=== PATIENT | male | born 1950 | race Caucasian/White ===

== ENCOUNTER 2016-07-12 21:25 | Inpatient (IN) | payer BC, OTHER ==
[~2016-07-12] VITALS: Ht 171.4 cm; Wt 73.6 kg
[2016-07-12] MEDS ORDERED: SODIUM CHLORIDE 0.9% 1000ML 1,000 ML IV STA (21:44)
--- NOTE | 2016-07-12 22:11 | DIAGNOSTIC IMAGING REPORT ---
CHEST ONE VIEW PORTABLE CLINICAL HISTORY: Altered mental status. Weakness. COMPARISON STUDY: No previous studies for comparison. FINDINGS: There is an old deformity of the mid shaft of the right clavicle. Lung volumes are normal. Lungs are clear. Pulmonary vascularity is normal. Cardiomediastinal silhouette is normal. There is no pneumothorax or pleural effusion. IMPRESSION: No acute cardiopulmonary findings. Electronically signed by: Gwyn Loera M.D. 07/12/2016 10:10 PM Dictated Date/Time: 07/12/2016 10:09 PM
[2016-07-12] MEDS ORDERED: AMOX875T PO (22:44)
[2016-07-12] MEDS ORDERED: TAMS0.4C38 PO (22:44)
[2016-07-12 22:53] LABS: COMPLETE YES; EOS % 0.9 %; HEMATOCRIT 50.6 % (42-52); IG% 0.3 %; LYMPH % 4.6 %; LYMPH ABS # 0.42 K/uL (1.2-3.4); MEAN CELL VOLUME 86.8 fL (80-100); MEAN CORPUSCULAR HEMOGLOBIN 30.2 pg (25-34); MEAN CORPUSCULAR HGB CONC 34.8 g/dl (32-36); MEAN PLATELET VOLUME 11.5 fL (7.4-10.4); MONO % 5.3 %; NEUT % 88.9 %; PLATELET COUNT 219 K/uL (130-400); RED BLOOD COUNT 5.83 M/uL (4.7-6.1); WHITE BLOOD COUNT 9.14 K/uL (4.8-10.8)
[2016-07-12 23:12] LABS: ALT/SGPT 28 U/L (12-78); AST/SGOT 22 U/L (15-37); BLOOD UREA NITROGEN 26 mg/dl (7-18); BUN/CREATININE RATIO 18.3 (10-20); CALCIUM 9.2 mg/dl (8.5-10.1); CARBON DIOXIDE 25 mmol/L (21-32); CHLORIDE 107 mmol/L (98-107); GLUCOSE 92 mg/dl (70-99); MAGNESIUM 2.2 mg/dl (1.8-2.4); POTASSIUM 3.6 mmol/L (3.5-5.1); SODIUM 144 mmol/L (136-145)
[2016-07-12 23:23] LABS: ALKALINE PHOSPHATASE 84 U/L (45-117); CKMB/CK RATIO 1.6 (0-3.0)
[2016-07-12 23:36] LABS: URINE APPEARANCE CLOUDY (CLEAR); URINE BILIRUBIN NEG (NEG); URINE COLOR DK YELLOW; URINE EPITHELIAL CELL AUTO 20-30 /lpf (0-5); URINE NITRITE NEG (NEG); URINE SPECIFIC GRAVITY 1.021 (1.000-1.030); UROBILINOGEN NEG (NEG)
[2016-07-12 23:39] LABS: MANUAL MICROSCOPIC REQUIRED? NO; REVIEW REQ? YES
[2016-07-13] MEDS ORDERED: SODIUM CHLORIDE 0.9% 1000ML 1,000 ML IV STA (00:09)
[2016-07-13] MEDS ORDERED: OPTIRAY 320 IV PRN (00:15)
[2016-07-13] MEDS ORDERED: ACETAMINOPHEN 325 MG TAB PO PRN (01:15)
[2016-07-13] MEDS ORDERED: ONDANSETRON INJ 2 MG/ML 2 ML VIAL IV PRN (01:15)
[2016-07-13] MEDS ORDERED: ACETAMINOPHEN IV 100 ML IV PRN (01:15)
[2016-07-13] MEDS: NSS + 20MEQ KCL 1000ML 1,000 ML IV SCH ×3 (01:30→15:20)
--- NOTE | 2016-07-13 01:41 | EMERGENCY ROOM VISIT NOTE ---
History Report prepared by Sofiya: Delaney Mckeon Under the Supervision of: Dr. Fredy Brooke M.D. First contact with patient: 21:44 Chief Complaint: SYNCOPE Stated Complaint: SYNCOPE Nursing Triage Summary: pt reports that he was eating dinner and felt dizzy. pt then had a syncopal episode. pt denies past medical history. reports that he is currently being treated for ear infection with augmentin. took first dose at 1600. pt is diaphoretic and shaky. History of Present Illness The patient is a 65 year old male who presents to the Emergency Room with complaints of a syncopal episode that occurred this evening. The patient reports that he was recently diagnosed with a left ear infection and had his first dose of Augmentin about 8 hours ago. This evening, he went to dinner feeling normal other than some very mild left ear pain. He ate dinner and had two glasses of wine. While sitting at the table, he became diaphoretic. He got up to go to the bathroom and when he came back to the table, passed out. Currently, he feels weak with some shortness of breath, although he feels better than he did right after the episode. He reports 3 episodes of diarrhea since he arrived to the ED. He also complains of chills. Per patient's , the patient had a 4 hour car ride 3 days ago. Pt denies headache, fevers, visual changes, neck pain, chest pain, nausea, vomiting, abdominal pain, back pain, melena, hematochezia, urinary symptoms, numbness, lymphadenopathy, rash, or other complaints. Source of History: patient, spouse/significant other Onset: this evening Position: other (global) Quality: other (syncope) Timing: other (episode) Associated Symptoms: + SOB, + chills, + diaphoresis, + diarrhea, + weakness Review of Systems See HPI for pertinent positives and negatives. A total of ten systems were reviewed and were otherwise negative. Past Medical & Surgical Medical Problems: (1) Otitis media Family History No pertinent family history stated. Social History Smoking Status: Never Smoker Alcohol Use: occasionally Marital Status: Housing Status: lives with significant other Current/Historical Medications Scheduled Amoxicillin & Pot Clavulanate (Augmentin 875-125 mg), 1 TAB PO BID Tamsulosin Hcl (Flomax), 0.4 MG PO DAILY Allergies Coded Allergies: No Known Allergies (Unverified , 07/12/16) Physical Exam Vital Signs Date Time Temp Pulse Resp B/P Pulse Ox O2 Delivery O2 Flow Rate FiO2 07/12/16 23:44 68 112/62 78 107/65 103/59 07/12/16 22:40 95 Room Air 07/12/16 22:03 63 07/12/16 21:32 36.4 58 24 111/66 97 Room Air Physical Exam GENERAL: Awake, alert, uncomfortable-appearing, in no distress HENT: Normocephalic, atraumatic. Oropharynx unremarkable. EYES: Normal conjunctiva. Sclera non-icteric. NECK: Supple. No nuchal rigidity. FROM. No JVD. RESPIRATORY: Clear to auscultation. CARDIAC: Regular rate, normal rhythm. Extremities warm and well perfused. Pulses equal. Hypotension noted on blood pressure measurement. ABDOMEN: Soft, non-distended. No tenderness to palpation. No rebound or guarding. No masses. RECTAL: Deferred. MUSCULOSKELETAL: Chest examination reveals no tenderness. The back is symmetrical on inspection without obvious abnormality. There is no CVA tenderness to palpation. No joint edema. LOWER EXTREMITIES: Calves are equal size bilaterally and non-tender. No edema. No discoloration. NEURO: Normal sensorium. No sensory or motor deficits noted. SKIN: No rash or jaundice noted. Medical Decision & Procedures ER Provider Diagnostic Interpretation: Radiology results as stated below per my review and radiologist interpretation CHEST ONE VIEW PORTABLE CLINICAL HISTORY: Altered mental status. Weakness. COMPARISON STUDY: No previous studies for comparison. FINDINGS: There is an old deformity of the mid shaft of the right clavicle. Lung volumes are normal. Lungs are clear. Pulmonary vascularity is normal. Cardiomediastinal silhouette is normal. There is no pneumothorax or pleural effusion. IMPRESSION: No acute cardiopulmonary findings. Electronically signed by: Gwyn Loera M.D. 07/12/2016 10:10 PM Dictated Date/Time: 07/12/2016 10:09 PM Laboratory Results 07/12/16 22:30 Red Blood Count 5.83, Mean Corpuscular Volume 86.8, Mean Corpuscular Hemoglobin 30.2, Mean Corpuscular Hemoglobin Concent 34.8, Mean Platelet Volume 11.5, Neutrophils (%) (Auto) 88.9, Lymphocytes (%) (Auto) 4.6, Monocytes (%) (Auto) 5.3, Eosinophils (%) (Auto) 0.9, Basophils (%) (Auto) 0.0, Neutrophils # (Auto) 8.13, Lymphocytes # (Auto) 0.42, Monocytes # (Auto) 0.48, Eosinophils # (Auto) 0.08, Basophils # (Auto) 0.00 07/12/16 22:30 Test 07/12/16 22:30 07/12/16 23:16 07/12/16 23:24 07/13/16 01:28 White Blood Count 9.14 K/uL (4.8-10.8) Red Blood Count 5.83 M/uL (4.7-6.1) Hemoglobin 17.6 g/dL (14.0-18.0) Hematocrit 50.6 % (42-52) Mean Corpuscular Volume 86.8 fL (80-100) Mean Corpuscular Hemoglobin 30.2 pg (25-34) Mean Corpuscular Hemoglobin Concent 34.8 g/dl (32-36) Platelet Count 219 K/uL (130-400) Mean Platelet Volume 11.5 fL (7.4-10.4) Neutrophils (%) (Auto) 88.9 % Lymphocytes (%) (Auto) 4.6 % Monocytes (%) (Auto) 5.3 % Eosinophils (%) (Auto) 0.9 % Basophils (%) (Auto) 0.0 % Neutrophils # (Auto) 8.13 K/uL (1.4-6.5) Lymphocytes # (Auto) 0.42 K/uL (1.2-3.4) Monocytes # (Auto) 0.48 K/uL (0.11-0.59) Eosinophils # (Auto) 0.08 K/uL (0-0.5) Basophils # (Auto) 0.00 K/uL (0-0.2) RDW Standard Deviation 42.0 fL (36.4-46.3) RDW Coefficient of Variation 13.3 % (11.5-14.5) Immature Granulocyte % (Auto) 0.3 % Immature Granulocyte # (Auto) 0.03 K/uL (0.00-0.02) Anion Gap 12.0 mmol/L (3-11) Est Creatinine Clear Calc Drug Dose 48.7 ml/min Estimated GFR () 59.8 Estimated GFR (Non- 51.6 BUN/Creatinine Ratio 18.3 (10-20) Bedside Glucose 88 mg/dl (70-99) Calcium Level 9.2 mg/dl (8.5-10.1) Magnesium Level 2.2 mg/dl (1.8-2.4) Total Bilirubin 0.5 mg/dl (0.2-1) Direct Bilirubin 0.1 mg/dl (0-0.2) Aspartate Amino Transf (AST/SGOT) 22 U/L (15-37) Alanine Aminotransferase (ALT/SGPT) 28 U/L (12-78) Alkaline Phosphatase 84 U/L (45-117) Total Creatine Kinase 103 U/L (39-308) Creatine Kinase MB 1.6 ng/ml (0.5-3.6) Creatine Kinase MB Ratio 1.6 (0-3.0) Troponin I < 0.015 ng/ml (0-0.045) Total Protein 7.7 gm/dl (6.4-8.2) Albumin 4.1 gm/dl (3.4-5.0) Thyroid Stimulating Hormone (TSH) 10.400 uIu/ml (0.300-4.500) Urine Color DK YELLOW Urine Appearance CLOUDY (CLEAR) Urine pH 5.0 (4.5-7.5) Urine Specific [place] 1.021 (1.000-1.030) Urine Protein NEG (NEG) Urine Glucose (UA) NEG (NEG) Urine Ketones TRACE (NEG) Urine Occult Blood NEG (NEG) Urine Nitrite NEG (NEG) Urine Bilirubin NEG (NEG) Urine Urobilinogen NEG (NEG) Urine Leukocyte Esterase NEG (NEG) Urine WBC (Auto) 1-5 /hpf (0-5) Urine RBC (Auto) 0-4 /hpf (0-4) Urine Hyaline Casts (Auto) >30 /lpf (0-5) Urine Epithelial Cells (Auto) 20-30 /lpf (0-5) Urine Bacteria (Auto) NEG (NEG) Urine Crystals CALCIUM OXALATE (NONE Urine Pathogenic Casts /lpf (0) Bedside Lactic Acid Venous 3.14 mmol/L (0.90-1.70) Laboratory results reviewed by me Medications Administered Medications (Trade) Dose Ordered Sig/Colby Route Start Time Stop Time Status Last Admin Dose Admin Sodium Chloride (Nss 1000ml) 1,000 ml @ 999 mls/hr Q1H1M STAT IV 07/12/16 21:44 07/12/16 22:44 DC 07/12/16 21:44 999 MLS/HR ECG Indication: syncope Rate (beats per minute): 57 Rhythm: sinus bradycardia Findings: no acute ischemic change, no ectopy ED Course 2144: Ordered NSS 1000 ml @ 999 mls/hr IV. 2227: The patient was evaluated in room C4. A complete history and physical exam was performed. 2313: I reassessed the patient. He was feeling slightly better. 0009: Ordered NSS 1000 ml @ 200 mls/hr IV. 0030: Upon reexamination, the patient was feeling better. I discussed the test results and treatment plan with him. The patient will be evaluated for further management. 0035: I discussed the case with Dr. Jo - [facility]. The patient will be evaluated for further management. Medical Decision Triage Nursing notes reviewed. The patient's presentation and history were concerning for syncope. Etiologies such as vasovagal event, infection, hypoglycemia, electrolyte abnormalities, cardiac sources, intracerebral event, toxicologic, neurologic, as well as others were entertained. The patient was evaluated. He was ill-appearing. His CBC, chem panel, LFTs, cardiac markers were unremarkable. The patient's urinalysis was negative. Stool studies were ordered. The patient had an elevated lactate level. He was mildly hypotensive. He was afebrile. He was hydrated and was feeling somewhat better but still not well. Chest x-ray showed no acute findings. CT imaging of the chest did not reveal any evidence of pneumonia, pleural effusion, pneumothorax, or pulmonary embolism. The patient's exact etiology of his symptoms is not obvious. He is developing diarrhea. This may be GI related. As the patient is still somewhat symptomatic and has unremarkable vital signs at this point as well as his above diagnostic testing further evaluation and management in the hospital is felt to be most appropriate. Consultation was made with internal medicine. The patient was evaluated in the Emergency Room for further treatment. The chart was completed utilizing [employer] voice recognition software. Grammatical errors, random word insertions, pronoun errors, and incomplete sentences are an occasional consequence of this system due to software limitations, ambient noise, and hardware issues. Any formal questions or concerns about the content, text, or information contained within the body of this dictation should be directly addressed to the physician for clarification. Consults Time Called: 29 Consulting Physician: Dr. Sandro Kapoor [facility] Hospitalist Returned Call: [phone] I discussed the case with him. The patient will be evaluated for further management. Impression Primary Impression: Syncope Scribe Attestation The scribe's documentation has been prepared under my direction and personally reviewed by me in its entirety. I confirm that the note above accurately reflects all work, treatment, procedures, and medical decision making performed by me. Departure Information Dispostion Being Evaluated By Hospitalist Referrals Tony Diaz M.D. (PCP) Patient Instructions My [facility]
[2016-07-13] MEDS ORDERED: MoRPHine SULFATE 4 MG/ML 1 ML CARP\\VIAL IV PRN (01:45)
[2016-07-13] MEDS ORDERED: MoRPHine SULFATE 2 MG/ML CARP IV PRN (01:45)
[2016-07-13] MEDS ORDERED: KETOROLAC TROMETHAMINE 15 MG/ML VIAL IV. PRN (01:45)
[2016-07-13] MEDS ORDERED: GADAVIST IV PRN (02:45)
[2016-07-13 05:12] VITALS: BP 108/71; PULSE 88; TEMP 36.8; O2SAT 98; Ht 171.4 cm; Wt 73.6 kg
--- NOTE | 2016-07-13 07:18 | DIAGNOSTIC IMAGING REPORT ---
MRI OF THE BRAIN WITHOUT AND WITH IV CONTRAST CLINICAL HISTORY: possible meningitis mental status change COMPARISON STUDY: No previous studies for comparison. TECHNIQUE: Utilizing a 1.5 Farhana magnet and dedicated coil, multiplanar, multiecho imaging of the brain was performed pre and postcontrast administration. IV administration of 8.5 mL of Gadavist contrast was uneventful. FINDINGS: Unremarkable signal characteristics throughout. No evidence for an acute ischemic process. Ventricular system is midline. No significant postcontrast enhancement. IMPRESSION: Normal study. Electronically signed by: Froilan Garduno M.D. 07/13/2016 7:16 AM Dictated Date/Time: 07/13/2016 7:12 AM
--- NOTE | 2016-07-13 07:30 | DIAGNOSTIC IMAGING REPORT ---
CHEST CTA for PULMONARY ARTERIES CT DOSE: 277.67 mGy.cm HISTORY: Short of breath. Syncope. TECHNIQUE: Multiaxial CT images of the chest were performed following the intravenous administration of contrast to evaluate the pulmonary arteries. Maximal intensity projection images were also obtained. COMPARISON STUDY: Chest 08/10/2016. FINDINGS: Cholelithiasis. A 12 mm left hepatic lobe hypodense lesion. This favors a cyst. The spleen is unremarkable. Bilateral adrenal gland thickening. No mediastinal or hilar lymphadenopathy. Mild thickening of the distal esophagus which is also fluid-filled. No pleural or pericardial effusions. Old, healed right clavicle fracture. No pneumothorax. A 3 mm nodule within the right upper lobe on image 199. An 8 mm nodule within the right lower lobe on image 139. Nodular density within the central aspect of the right lower lobe adjacent to a bronchus on image 127 measures 7 mm. This favors a bronchial lymph node. No evidence for an aortic dissection. Mild motion artifact. No evidence for pulmonary embolus. IMPRESSION: 1. No evidence for pulmonary embolus. 2. An 8 mm indeterminate pulmonary nodule within the right lower lobe. Please refer to the chart below for recommended follow-up. 3. A 7 mm right lower lobe central nodule which favors a bronchial lymph node. However, this also bears watching on future examinations. 4. Mildly thickened distal esophagus which is also fluid-filled. This could represent a nonspecific esophagitis. Please refer to below summary of Fleischner criteria recommendations for follow-up of incidental CT nodules (Phill Meyer, Guidelines for management of small pulmonary nodules detected on CT scans: A statement from the Fleischner Society, Radiology 237: [phone].) SOLID NODULES Solitary nodule size: <6 mm * low risk patients: no follow-up needed * high risk patients: optional CT at 12 months Solitary nodule size: 6-8 mm * low risk patients: follow-up at 6-12 months, then consider further follow-up at 18-24 months * high risk patients: initial follow-up CT at 6-12 months and then at 18-24 months if no change Solitary nodule size: >8 mm * either low or high risk patients - consider follow-up CT at 3 months, and/or CT-PET, and/or biopsy Multiple nodules size: <6 mm * low risk patients: no routine follow-up * high risk patients: optional CT at 12 months Multiple nodules size: 6-8 mm * low risk patients: follow-up at 3-6 months, then consider further follow-up at 18-24 months * high risk patients: follow-up at 3-6 months, then at 18-24 months if no change Multiple nodules size: >8 mm * low risk patients: follow-up at 3-6 months, then consider further follow-up at 18-24 months * high risk patients: follow-up at 3-6 months, then at 18-24 months if no change Note: newly detected indeterminate nodule in persons 35 years of age or older. * low risk patients: minimal or absent history of smoking and/or other known risk factors * high risk patients: history of smoking or of other known risk factors (e.g. first degree relative with lung cancer, or exposure to asbestos, radon, uranium) * if a nodule up to 8 mm is partly solid or is ground glass further follow-up is required after 24 months to exclude possible slow growing adenocarcinoma (LUIS ANGEL) SUBSOLID NODULES Solitary pure ground-glass nodule * nodule size <6 mm - no CT follow-up required * nodule size >=6 mm - follow-up CT at 6-12 months, then every 2 years until 5 years Solitary part-solid nodule * nodule size <6 mm - no CT follow-up required * nodule size >=6 mm - follow-up CT at 3-6 months. If unchanged, and solid component remains <6 mm, then annual follow-up for 5 years Multiple subsolid nodules * nodule size <6 mm - follow-up CT at 3-6 months, consider further follow-up at 2 and 4 years if stable * nodule size >=6 mm - follow-up CT at 3-6 months, subsequent management based on the most suspicious nodule(s) Electronically signed by: Regis Mcneal M.D. 07/13/2016 9:16 AM Dictated Date/Time: 07/13/2016 7:21 AM
[2016-07-13 07:44] VITALS: BP 128/87; PULSE 74; TEMP 36.6; O2SAT 93
[2016-07-13] MEDS ORDERED: PANTOprazole INJ 40 MG in SYRINGE 0 ML IV SCH (11:00)
[2016-07-13 12:10] VITALS: BP_SYST 116; BP_SYST 123; BP_SYST 128; BP_DIAS 70; BP_DIAS 72; BP_DIAS 78; PULSE 69; PULSE 81; PULSE 82; TEMP 37.7; O2SAT 94
[2016-07-13 14:55] LABS: BUN/CREATININE RATIO 34.4 (10-20); CALCIUM 7.7 mg/dl (8.5-10.1); CREATININE 0.95 mg/dl (0.60-1.40); POTASSIUM 3.9 mmol/L (3.5-5.1)
--- NOTE | 2016-07-13 15:08 | Discharge Instructions ---
Discharge Instructions Date of Service Jul 13, 2016. Admission Reason for Admission: Syncope Discharge Discharge Diagnosis / Problem: Syncope, likely vasovagal from acute gastroenteritis Discharge Goals Goal(s): Decrease discomfort, Improve function Activity Recommendations Activity Limitations: resume your previous activity Lifting Limitations: none Exercise/Sports Limitations: as tolerated May Resume Sexual Activity: when tolerated Shower/Bathe: no limitations Driving or Machine Use: no limitations . Instructions / Follow-Up Instructions / Follow-Up Medications: no changes recommended - AUGMENTIN: likely not the cause of diarrhea since you only took one dose, continue to take as prescribed, can check with Dr. Diaz if you have any questions Full work up for syncope included MRI brain that was normal, EKG normal, negative cardiac enzymes CTA of the chest ruled out a PE, you did have incidental finding of 8mm nodule and 7mm nodule in right middle and lower lobes. You are at low risk for this being a malignancy, guidelines recommend a repeat CT scan in 6 months to document any possible change in size. Discuss with Dr. Diaz to arrange. Your Cr (kidney function) was elevated on admission at 1.4 but with IV fluids came down to 0.8 which is likely your normal level. The rise in Cr likely due to the acute infection Gastroenteritis: as you mentioned, the diarrhea is slowing down and you feel better. The C diff test was negative. Stool cultures are still pending but you do not need to stay in hospital for results. I will call you if anything positive. Get rest and stay well hydrated, advance diet as tolerated FOLLOW UP - Dr. Diaz in one week, he will get a copy of the discharge summary Current Hospital Diet Patient's current hospital diet: Regular Diet Discharge Diet Recommended Diet: Regular Diet (advance as tolerated) Pending Studies Studies pending at discharge: yes List of pending studies: stool cultures Laboratory Results Last Resulted BMP 07/13/16 14:00 Medical Emergencies . Who to Call and When: Medical Emergencies: If at any time you feel your situation is an emergency, please call 911 immediately. . Non-Emergent Contact Non-Emergency issues call your: Primary Care Provider Call Non-Emergent contact if: you have a fever, you have any medication questions . . "Provider Documentation" section prepared by Marek Hamilton. VTE Core Measure Inpt VTE Proph given/why not?: Treatment not indicated
[2016-07-13 15:21] VITALS: BP 123/78; PULSE 81; TEMP 37.7; O2SAT 94
[2016-07-13 16:39] LABS: BASO % 0.3 %; BASO ABS # 0.02 K/uL (0-0.2); COMPLETE YES; EOS % 2.2 %; IG% 0.3 %; LYMPH % 9.3 %; LYMPH ABS # 0.69 K/uL (1.2-3.4); MEAN CELL VOLUME 85.7 fL (80-100); MEAN CORPUSCULAR HGB CONC 33.8 g/dl (32-36); MEAN PLATELET VOLUME 11.3 fL (7.4-10.4); NEUT % 84.9 %; PLATELET COUNT 161 K/uL (130-400); WHITE BLOOD COUNT 7.42 K/uL (4.8-10.8)
--- NOTE | 2016-07-14 02:48 | History and Physical ---
History & Physical Date & Time of Service: Jul 14, 2016 at 02:27. The patient was seen on 07/12/2016. This is a redictation from an H&P that was lost during computer upgrade on the morning of 07/13/2016. Chief Complaint: Syncope Primary Care Physician: Tony Diaz M.D. History of Present Illness Source: patient, spouse The patient is a 65-year-old male who presents emergency department with a syncopal episode that occurred after eating dinner at a local restaurant. He had just started treatment for a left ear infection with his first dose of Augmentin about 6 hours prior to the event. While he was sitting at the dinner table tonight, he became diaphoretic, looked very pale, and when his got him up and had him walk away from the table he leaned very heavily on her and then passed out. He does not remember anything beyond standing up at the table , and his asked to fill in the remaining details. In this time and emergency Department feels generally very weak, was initially somewhat short of breath but that has normalized now. He reports 7 bowel movements since he has been in the emergency department. He has not had any sick exposures, but did have a recent 4 hour car ride 3 days ago. Past Medical/Surgical History Medical Problems: (1) Otitis media Status: Resolved Social History Smoking Status: Former Smoker Smokeless Tobacco Use: No Alcohol Use: socially Drug Use: none Marital Status: Housing status: lives with family Multi-Drug Resistant Organisms History of MDRO: No Allergies Coded Allergies: No Known Allergies (Unverified , 07/12/16) Home Medications Scheduled Amoxicillin & Pot Clavulanate (Augmentin 875-125 mg), 1 TAB PO BID Tamsulosin Hcl (Flomax), 0.4 MG PO DAILY Review of Systems The patient denies chest pain, palpitations, cough, lower extremity swelling, vision change, hearing change, sore throat, fevers, chills, weight change, blood in urine or stool, dysuria, urinary frequency or urgency, headache, rash, abnormal bruising or bleeding, imbalance, focal weakness, numbness or tingling in arms or legs, arthralgias or myalgias, back or neck pain, night sweats, or allergy symptoms. The review of systems is otherwise negative other than for that already noted above, and at least 10 systems have been reviewed. Physical Exam Vital Signs Date Time Temp Pulse Resp B/P Pulse Ox O2 Delivery O2 Flow Rate FiO2 07/13/16 15:21 37.7 81 20 94 Room Air 07/13/16 12:10 37.7 69 20 128/72 94 Room Air 82 116/70 81 123/78 07/13/16 12:00 Room Air 07/13/16 08:00 Room Air 07/13/16 07:44 36.6 74 18 128/87 93 Room Air 07/13/16 05:12 36.8 88 22 108/71 98 Room Air 07/13/16 04:29 74 18 127/75 97 07/13/16 03:40 56 20 165/73 97 Room Air The patient is awake, alert and oriented 3, normocephalic and atraumatic, lying in bed on his side, skin looks flushed, looks very fatigued, but otherwise in no acute distress. HEENT--PERRL, EOMI, mucous membranes and oropharynx very dry. Neck--supple, no JVD or bruits, thyroid normal, trachea midline, no adenopathy. Heart--bradycardic and regular, no extra beats, no murmurs, rubs or gallops. Lungs--clear bilaterally, no respiratory distress, no accessory muscle use. Abdomen--normal bowel sounds and soft, generalized mild tenderness, nondistended , no hernias or masses, no organomegaly. Extremities--no cyanosis, clubbing or edema. There are good distal pulses b/l. Dermatologic--skin in general is flushed and warm and dry Neurologic--cranial nerves II through XII grossly intact. Rheumatologic--normal range of motion Psychiatric--normal affect. Diagnostics Laboratory Results Results Past 24 Hours Test 07/13/16 05:29 07/13/16 14:00 Range/Units White Blood Count 7.42 4.8-10.8 K/uL Red Blood Count 4.90 4.7-6.1 M/uL Hemoglobin 14.2 14.0-18.0 g/dL Hematocrit 42.0 42-52 % Mean Corpuscular Volume 85.7 80-100 fL Mean Corpuscular Hemoglobin 29.0 25-34 pg Mean Corpuscular Hemoglobin Concent 33.8 32-36 g/dl Platelet Count 161 130-400 K/uL Mean Platelet Volume 11.3 7.4-10.4 fL Neutrophils (%) (Auto) 84.9 % Lymphocytes (%) (Auto) 9.3 % Monocytes (%) (Auto) 3.0 % Eosinophils (%) (Auto) 2.2 % Basophils (%) (Auto) 0.3 % Neutrophils # (Auto) 6.31 1.4-6.5 K/uL Lymphocytes # (Auto) 0.69 1.2-3.4 K/uL Monocytes # (Auto) 0.22 0.11-0.59 K/uL Eosinophils # (Auto) 0.16 0-0.5 K/uL Basophils # (Auto) 0.02 0-0.2 K/uL RDW Standard Deviation 42.6 36.4-46.3 fL RDW Coefficient of Variation 13.6 11.5-14.5 % Immature Granulocyte % (Auto) 0.3 % Immature Granulocyte # (Auto) 0.02 0.00-0.02 K/uL Sodium Level 142 136-145 mmol/L Potassium Level 3.9 3.5-5.1 mmol/L Chloride Level 115 98-107 mmol/L Carbon Dioxide Level 18 21-32 mmol/L Anion Gap 9.0 3-11 mmol/L Blood Urea Nitrogen 33 7-18 mg/dl Creatinine 0.95 0.60-1.40 mg/dl Est Creatinine Clear Calc Drug Dose 71.8 ml/min Estimated GFR () 95.6 Estimated GFR (Non- 82.5 BUN/Creatinine Ratio 34.4 10-20 Random Glucose 88 70-99 mg/dl Lactic Acid Level 1.3 0.4-2.0 mmol/L Calcium Level 7.7 8.5-10.1 mg/dl Troponin I < 0.015 0-0.045 ng/ml Microbiology Results 07/13/16 C.difficile Toxin B Gene (PCR) - Final, Complete No C. difficile toxin B gene detected 07/13/16 Shiga Toxin Test, Received Pending 07/13/16 Stool Culture, Received Pending Diagnostic Radiology Patient Name: JORGE JUSTICE Unit Number: [id number] Dictated: 07/12/162208 Transcribed: 07/12/162208 JA Printed Date/Time: [~ rep prt dt]/[~ rep prt tm] [~ rep ct labl] - [~ rep ct ivnm] [facility] Radiology Department [place], [place] [id number] Dictated: 07/12/162208 Transcribed: 07/12/162208 JA Printed Date/Time: [~ rep prt dt]/[~ rep prt tm] [~ rep ct labl] - [~ rep ct ivnm] CHEST ONE VIEW PORTABLE CLINICAL HISTORY: Altered mental status. Weakness. COMPARISON STUDY: No previous studies for comparison. FINDINGS: There is an old deformity of the mid shaft of the right clavicle. Lung volumes are normal. Lungs are clear. Pulmonary vascularity is normal. Cardiomediastinal silhouette is normal. There is no pneumothorax or pleural effusion. IMPRESSION: No acute cardiopulmonary findings. Electronically signed by: Gwyn Loera M.D. 07/12/2016 10:10 PM Dictated Date/Time: 07/12/2016 10:09 PM The status of this report is Signed. Draft = Not yet reviewed or approved by Radiologist. Signed = Reviewed and approved by Radiologist. <AttendingPhy></AttendingPhy> <FamilyPhy>Tony Diaz M.D.</FamilyPhy> < PrimaryPhy>Tony Diaz M.D.</PrimaryPhy> <UnitNumber>[id number]</ UnitNumber> <VisitNumber>[id number]</VisitNumber> <PatientName>JORGE JUSTICE< /PatientName> <DateOfBirth>1950</DateOfBirth> <Location>[facility]</Location> < ServiceDate>07/12/16</ServiceDate> <MNE>ESINDI</MNE> <OrderingPhy>Fredy Brooke MD</OrderingPhy> <OrderingPhyMNE>f rep ord dr medina</OrderingPhyMNE> < DictatingPhyMNE>f rep dict dr medina</DictatingPhyMNE> <CCListMNE>f rep ct mne</ CCListMNE> <AdmittingPhyMNE>f pt admit dr medina</AdmittingPhyMNE> <AttendingPhyMNE >f pt attend dr medina</AttendingPhyMNE> <ConsultingPhyMNE>f pt consult dr medina</ConsultingPhyMNE> <FamilyPhyMNE>f pt fam dr medina</FamilyPhyMNE> <OtherPhyMNE>f pt other dr medina</OtherPhyMNE> < PrimaryPhyMNE>f pt prim care dr medina</PrimaryPhyMNE> <ReferringPhyMNE>f pt referring dr medina</ReferringPhyMNE> Patient Name: JORGE JUSTICE Unit Number: [id number] Dictated: 07/13/16720 Transcribed: 07/13/16810 [facility] Printed Date/Time: [~ rep prt dt]/[~ rep prt tm] [~ rep ct labl] - [~ rep ct ivnm] [facility] [place] [address] Dictated: 07/13/16720 Transcribed: 07/13/16810 [facility] Printed Date/Time: [~ rep prt dt]/[~ rep prt tm] [~ rep ct labl] - [~ rep ct ivnm] [~ rep ct add3]] CHEST CTA for PULMONARY ARTERIES CT DOSE: 277.67 mGy.cm HISTORY: Short of breath. Syncope. TECHNIQUE: Multiaxial CT images of the chest were performed following the intravenous administration of contrast to evaluate the pulmonary arteries. Maximal intensity projection images were also obtained. COMPARISON STUDY: Chest 08/10/2016. FINDINGS: Cholelithiasis. A 12 mm left hepatic lobe hypodense lesion. This favors a cyst. The spleen is unremarkable. Bilateral adrenal gland thickening. No mediastinal or hilar lymphadenopathy. Mild thickening of the distal esophagus which is also fluid-filled. No pleural or pericardial effusions. Old, healed right clavicle fracture. No pneumothorax. A 3 mm nodule within the right upper lobe on image 199. An 8 mm nodule within the right lower lobe on image 139. Nodular density within the central aspect of the right lower lobe adjacent to a bronchus on image 127 measures 7 mm. This favors a bronchial lymph node. No evidence for an aortic dissection. Mild motion artifact. No evidence for pulmonary embolus. IMPRESSION: 1. No evidence for pulmonary embolus. 2. An 8 mm indeterminate pulmonary nodule within the right lower lobe. Please refer to the chart below for recommended follow-up. 3. A 7 mm right lower lobe central nodule which favors a bronchial lymph node. However, this also bears watching on future examinations. 4. Mildly thickened distal esophagus which is also fluid-filled. This could represent a nonspecific esophagitis. Please refer to below summary of Fleischner criteria recommendations for follow-up of incidental CT nodules (Phill Meyer, Guidelines for management of small pulmonary nodules detected on CT scans: A statement from the Fleischner Society, Radiology 237: [phone].) SOLID NODULES Solitary nodule size: <6 mm * low risk patients: no follow-up needed * high risk patients: optional CT at 12 months Solitary nodule size: 6-8 mm * low risk patients: follow-up at 6-12 months, then consider further follow-up at 18-24 months * high risk patients: initial follow-up CT at 6-12 months and then at 18-24 months if no change Solitary nodule size: >8 mm * either low or high risk patients - consider follow-up CT at 3 months, and/or CT-PET, and/or biopsy Multiple nodules size: <6 mm * low risk patients: no routine follow-up * high risk patients: optional CT at 12 months Multiple nodules size: 6-8 mm * low risk patients: follow-up at 3-6 months, then consider further follow-up at 18-24 months * high risk patients: follow-up at 3-6 months, then at 18-24 months if no change Multiple nodules size: >8 mm * low risk patients: follow-up at 3-6 months, then consider further follow-up at 18-24 months * high risk patients: follow-up at 3-6 months, then at 18-24 months if no change Note: newly detected indeterminate nodule in persons 35 years of age or older. * low risk patients: minimal or absent history of smoking and/or other known risk factors * high risk patients: history of smoking or of other known risk factors (e.g. first degree relative with lung cancer, or exposure to asbestos, radon, uranium) * if a nodule up to 8 mm is partly solid or is ground glass further follow-up is required after 24 months to exclude possible slow growing adenocarcinoma (LUIS ANGEL) SUBSOLID NODULES Solitary pure ground-glass nodule * nodule size <6 mm - no CT follow-up required * nodule size >=6 mm - follow-up CT at 6-12 months, then every 2 years until 5 years Solitary part-solid nodule * nodule size <6 mm - no CT follow-up required * nodule size >=6 mm - follow-up CT at 3-6 months. If unchanged, and solid component remains <6 mm, then annual follow-up for 5 years Multiple subsolid nodules * nodule size <6 mm - follow-up CT at 3-6 months, consider further follow-up at 2 and 4 years if stable * nodule size >=6 mm - follow-up CT at 3-6 months, subsequent management based on the most suspicious nodule(s) Electronically signed by: Regis Mcneal M.D. 07/13/2016 9:16 AM Dictated Date/Time: 07/13/2016 7:21 AM The status of this report is Signed. Draft = Not yet reviewed or approved by Radiologist. Signed = Reviewed and approved by Radiologist. <AttendingPhy>Marek Hamilton D.O.</AttendingPhy> <FamilyPhy>Tony Diaz M.D.</FamilyPhy> <PrimaryPhy>Tony Diaz M.D.</PrimaryPhy> <UnitNumber >[id number]</UnitNumber> <VisitNumber>[id number]</VisitNumber> <PatientName> JORGE JUSTICE</PatientName> <DateOfBirth>1950</DateOfBirth> <Location> [facility]</Location> <ServiceDate>07/12/16</ServiceDate> <MNE>ESINDI</MNE> < OrderingPhy>Fredy Brooke MD</OrderingPhy> <OrderingPhyMNE>f rep ord dr medina </OrderingPhyMNE> <DictatingPhyMNE>f rep dict dr medina</DictatingPhyMNE> < CCListMNE>f rep ct adam</CCListMNE> <AdmittingPhyMNE>f pt admit dr medina</ AdmittingPhyMNE> <AttendingPhyMNE>f pt attend dr medina</AttendingPhyMNE> <ConsultingPhyMNE>f pt consult dr mne</ConsultingPhyMNE> <FamilyPhyMNE>f pt fam dr medina</FamilyPhyMNE> <OtherPhyMNE>f pt other dr medina</OtherPhyMNE> < PrimaryPhyMNE>f pt prim care dr medina</PrimaryPhyMNE> <ReferringPhyMNE>f pt referring dr medina</ReferringPhyMNE> Patient Name: JORGE JUSTICE Unit Number: [id number] Dictated: 07/13/16711 Transcribed: 07/13/16711 MS Printed Date/Time: [~ rep prt dt]/[~ rep prt tm] [~ rep ct labl] - [~ rep ct ivnm] [facility] Radiology Department [place] [id number] Dictated: 07/13/16711 Transcribed: 07/13/16711 MS Printed Date/Time: [~ rep prt dt]/[~ rep prt tm] [~ rep ct labl] - [~ rep ct ivnm] [~ rep ct add3]] MRI OF THE BRAIN WITHOUT AND WITH IV CONTRAST CLINICAL HISTORY: possible meningitis mental status change COMPARISON STUDY: No previous studies for comparison. TECHNIQUE: Utilizing a 1.5 Farhana magnet and dedicated coil, multiplanar, multiecho imaging of the brain was performed pre and postcontrast administration. IV administration of 8.5 mL of Gadavist contrast was uneventful. FINDINGS: Unremarkable signal characteristics throughout. No evidence for an acute ischemic process. Ventricular system is midline. No significant postcontrast enhancement. IMPRESSION: Normal study. Electronically signed by: Froilan Garduno M.D. 07/13/2016 7:16 AM Dictated Date/Time: 07/13/2016 7:12 AM The status of this report is Signed. Draft = Not yet reviewed or approved by Radiologist. Signed = Reviewed and approved by Radiologist. <AttendingPhy>Jose Jo M.D.</AttendingPhy> <FamilyPhy>Tony Diaz M.D.</FamilyPhy> <PrimaryPhy>Tony Diaz M.D.</PrimaryPhy> < UnitNumber>[id number]</UnitNumber> <VisitNumber>[id number]</VisitNumber> < PatientName>JORGE JUSTICE</PatientName> <DateOfBirth>1950</DateOfBirth> < Location>[facility]</Location> <ServiceDate>07/12/16</ServiceDate> <MNE>ESINDI</MNE> < OrderingPhy>Jose Jo M.D.</OrderingPhy> <OrderingPhyMNE>f rep ord dr medina</OrderingPhyMNE> <DictatingPhyMNE>f rep dict dr medina</DictatingPhyMNE> < CCListMNE>f rep ct adam</CCListMNE> <AdmittingPhyMNE>f pt admit dr medina</ AdmittingPhyMNE> <AttendingPhyMNE>f pt attend dr medina</AttendingPhyMNE> <ConsultingPhyMNE>f pt consult dr medina</ConsultingPhyMNE> <FamilyPhyMNE>f pt fam dr medina</FamilyPhyMNE> <OtherPhyMNE>f pt other dr medina</OtherPhyMNE> < PrimaryPhyMNE>f pt prim care dr medina</PrimaryPhyMNE> <ReferringPhyMNE>f pt referring dr medina</ReferringPhyMNE> EKG Sinus bradycardia at 57 bpm, no acute ST-T changes. Impression Assessment and Plan Syncope/hypotension/intractable diarrhea--the patient will be admitted to the telemetry unit for serial cardiac enzymes, cardiac rhythm monitoring and a 2-D echocardiogram with Dopplers. He had recently begun treatment for a left otitis media, and underwent an MRI of the brain with contrast which was negative for any suggestion of meningitis or progressive abscess. Since his symptoms began very shortly after eating dinner, the most likely diagnosis was that of toxin induced food poisoning. He will be aggressively rehydrated with IV fluids. Stool culture, O&P and C. difficile studies have been ordered and are pending. I would not place him on any antibiotics at this time, including for an otitis media, until the cause of the diarrhea is known and verified not to be Escherichia coli [id number]. RAST testing for penicillin and amoxicillin was sent, to verify that an atypical reaction to the Augmentin did not occur. 8 mm right lower lobe pulmonary nodule--the patient will need to undergo repeat CT imaging chest in 6 months. Hypothyroidism--TSH on his admission laboratories was 10.40. This should be repeated during a time when he is not acutely ill, along with a free T4 and free T3, and treated if still suggestive of an underactive thyroid. Adrenal hyperplasia--noted on CT. She'll have a follow-up CT in 3-6 months to demonstrate stability. Level of Care Telemetry Advanced Directives Existing Advance Directive: No Existing Living Will: Yes Existing Power of Last Turner: No Resuscitation Status FULL RESUSCITATION VTE Prophylaxis VTE Risk Assessment Done? Y/N: Yes Risk Level: Low Given or contraindicated: Treatment not indicated Social Service Consult None Apply
--- NOTE | 2016-07-14 08:49 | Discharge Summary ---
Discharge Summary Date of Service Jul 14, 2016. Discharge Summary Admission Date: Jul 13, 2016 at 04:16 Discharge Date: Jul 13, 2016 Discharge Disposition: Home Principal Diagnosis: Syncope Problems/Secondary Diagnoses: Gastroenteritis elevated lactic acid elevated creatinine, dehydration Procedures: MRI brain - normal CTA chest - no PE, incidental findings of two separate pulmonary nodules right middle and lower lobe, 7mm and 8mm, deemed low risk, repeat CT in 6 months Consultations: none Medication Reconciliation Continued Medications: Amoxicillin & Pot Clavulanate (Augmentin 875-125 mg) 1 Tab Tab 1 TAB PO BID, #14 TAB Tamsulosin Hcl (Flomax) 0.4 Mg Cap 0.4 MG PO DAILY, CAP Discharge Exam Patient admitted after he had a syncopal episode associated with nausea, diaphoresis. Never had chest pain or shortness of breath. No history of syncope. He had just started taking Augmentin for a left ear infection, he only took one dose at 4pm the day of admission. He ate dinner with family and friends and had two glasses of wine. Towards the end of dinner he noticed abdominal pain, nausea, diaphoresis. Had to go to the bathroom, had loose stools. Returned to the dinner table and paid for dinner since he felt sick, was walking to leave when he passed out for several minutes. No confusion when he woke, was brought to the ED by EMS. On 07/13 he was feeling much better. He had loose stools overnight and in the morning but he reported that his stools were becoming more formed. He had slept most of the morning but when he walked to the toilet he felt much stronger , no loss of balance. No orthostatic changes noted. Reviewed his labs and imaging. Updated him on the CT findings of the nodules and need for follow up CT. He was given a diet and tolerated well. He wanted to go home. Since he had no arrhythmias, normal EKG, lactic acid back to normal and troponin negative he was deemed safe for discharge. Review of Systems: Constitutional: + fatigue, + sweats, + weakness, No chills, No fever, No weight loss Eyes: No diplopia, No discharge, No eye pain, No problem reported, No redness, No worsening of vision ENT: + problem reported (had ear pain on 07/12, no ear pain on 07/13), No dental problems, No hearing loss, No nasal symptoms, No sore throat, No tinnitus , No trouble swallowing, No unusual epistaxis Respiratory: No cough, No dyspnea at rest, No dyspnea on exertion, No hemoptysis, No problem reported, No shortness of breath, No sputum, No wheezing Cardiovascular: No PND, No chest pain, No claudication, No edema, No orthopnea, No palpitations, No problem reported Abdomen: + diarrhea, No GI bleeding, No constipation, No nausea, No pain, No vomiting Musculoskeletal: No calf pain, No joint pain, No muscle pain, No problem reported, No swelling Genitourinary - Male: No dysuria, No hematuria, No urinary frequency, No urinary urgency Neurologic: No balance problems, No memory loss, No numbness/tingling, No paralysis, No problem reported, No vertigo, No weakness Psychiatric: No anhedonism, No anxiety, No depression symptoms, No insomnia , No problem reported, No substance abuse Endocrine: No excessive thirst, No excessive urination, No fatigue, No problem reported Hematologic / Lymphatic: No abnormal bleeding/bruising, No clotting problems , No night sweats, No problem reported, No swollen lymph nodes Integumentary: No bleeding, No color change, No itch, No new/changing skin lesions, No problem reported, No rash Physical Exam: General Appearance: WD/WN, no apparent distress Eyes: normal inspection, EOMI, sclerae normal ENT: normal ENT inspection, hearing grossly normal, pharynx normal Neck: supple, no adenopathy, no JVD, trachea midline Respiratory/Chest: chest non-tender, lungs clear, normal breath sounds, no respiratory distress, no accessory muscle use Cardiovascular: regular rate, rhythm, no edema, no gallop, no JVD, no murmur , normal peripheral pulses Abdomen / GI: normal bowel sounds, non tender, soft, no organomegaly Extremities: normal inspection, no calf tenderness, normal capillary refill , no pedal edema, normal range of motion, pelvis stable Neurologic/Psychiatric: engraver rubber II-XII nml as tested, no motor/sensory deficits , alert, normal mood/affect, normal reflexes, oriented x 3 Skin: normal color, warm/dry, no rash Lymphatic: no adenopathy Hospital Course 65 yo male observed on telemetry due to syncope preceded by diaphoresis, nausea , abdominal pain and diarrhea. - Syncope: most likely vasovagal in response to abdominal pain, nausea, diarrhea MRI brain normal, no signs of stroke CTA chest negative for PE, showed nodules, see below EKG normal sinus, no ischemia, troponin negative, never had chest pain or pressure on exam his heart sounds are clear, no murmurs, he exercises all the time without chest pain, no need for echo at this time feels much better with IV fluids, Cr down to 0.8, lactic acid normal tolerating diet, will go home - Left otitis media; started on Augmentin, only took one dose, doubt that it caused his symptoms can complete course as tolerated - Acute gastroenteritis: C diff negative, stool cultures negative but can be followed outpatient patient reports that symptoms already markedly improved, he is hungry less BM and they are more formed he just wants to go home and rest and stay well hydrated - Lactic acidosis: very mild, resolved with fluids - Elevated Cr: due to some dehydration, resolved with IV fluids, Cr back to 0.8 - Right sided lung nodules: two separate nodules, one 7mg and the other 8mm he did smoke for 14 years but quit in 1982 he is low risk, will repeat a CT chest in 6 months to reassess d/c to home Total Time Spent: Greater than 30 minutes This includes examination of the patient, discharge planning, medication reconciliation, and communication with other providers. Discharge Instructions Please refer to the electronic Patient Visit Report (Discharge Instructions) for additional information. Follow-Up Dr. Diaz next week Additional Copies To Tony Diaz M.D.
== END 2016-07-13 13:50 | disposition home or self-care (01) | DRG 392 ==
LOC: ENRESERVTM → ENRESERVDT → EDBD 21:25 → C.EDC 21:28 → C.2T 07-13 04:16
PROVIDERS: ADMIT Hospitalist; ATTEND Internal Medicine
DX: K52.9 Noninfective gastroenteritis and colitis, unspecified (principal); E87.2 Acidosis; R55 Syncope and collapse; E86.0 Dehydration; E03.9 Hypothyroidism, unspecified; I95.9 Hypotension, unspecified; H66.92 Otitis media, unspecified, left ear; R91.8 Other nonspecific abnormal finding of lung field; R79.89 Other specified abnormal findings of blood chemistry; E27.8 Other specified disorders of adrenal gland; Z79.899 Other long term (current) drug therapy; Z87.891 Personal history of nicotine dependence

== ENCOUNTER → 2016-10-05 | Outpatient (CLI) | payer BC ==
[~2016-10-05] MED LIST: AMOX875T PO; TAMS0.4C38 PO
--- NOTE | 2016-10-05 12:03 | DIAGNOSTIC IMAGING REPORT ---
RIGHT HEEL MIN 2 VIEWS CLINICAL HISTORY: M72.2 E65 RIGHT HEEL Right pain COMPARISON: None. DISCUSSION: The bones and joint spaces appear intact. There is no evidence of fracture, dislocation or bony disease. Heel spur is present. Subtalar joint is unremarkable. IMPRESSION: Heel spur Electronically signed by: Froilan Garduno M.D. 10/05/2016 12:01 PM Dictated Date/Time: 10/05/2016 12:01 PM
== END | disposition home or self-care (01) ==
LOC: C.RAD1850 11:39
PROVIDERS: ATTEND Family Medicine
DX: M72.2 Plantar fascial fibromatosis (principal); E65 Localized adiposity; M77.31 Calcaneal spur, right foot

== ENCOUNTER → 2017-01-22 | Outpatient (CLI) | payer BC ==
--- NOTE | 2017-01-22 12:26 | DIAGNOSTIC IMAGING REPORT ---
(CHEST) THORAX WITHOUT CT DOSE: 318.59 mGy.cm HISTORY: Follow-up LUNG NODULES TECHNIQUE: Multiaxial CT images of the chest were performed without contrast. A dose lowering technique was utilized adhering to the principles of ALARA. COMPARISON: Chest CT 07/13/2016. FINDINGS: Stable 8 mm nodule within the right lower lobe on image 164. Stable 7 mm nodule within the right lower lobe on image 178. No pneumothorax. No pleural effusions. The central airways are patent. There is also a 7 mm groundglass nodule within the right lung apex on image 69. This was likely present on the prior study but is difficult to assess due to the motion artifact and streak artifact at this location. No new pulmonary nodules identified. Old, healed right clavicle fracture. Cholelithiasis. Stable hypodense lesion within the left hepatic lobe. The unenhanced spleen is unremarkable. Stable bilateral adrenal gland thickening. Normal caliber thoracic aorta. No mediastinal or hilar lymphadenopathy. Mild distal esophageal thickening has slightly improved. The heart is normal in size. IMPRESSION: 1. Stable right lung nodules as described above with the largest measuring 8 mm. Continued follow-up as detailed below. 2. Slight improvement in the mildly thickened distal esophagus. 3. Cholelithiasis. Please refer to below summary of Fleischner criteria recommendations for follow-up of incidental CT nodules (Phill Meyer, Guidelines for management of small pulmonary nodules detected on CT scans: A statement from the Fleischner Society, Radiology 237: [phone].) SOLID NODULES Solitary nodule size: <6 mm * Low risk patients: no follow-up needed * high risk patients: optional CT at 12 months Solitary nodule size: 6-8 mm * Low risk patients: follow-up at 6-12 months, then consider further follow-up at 18-24 months * high risk patients: initial follow-up CT at 6-12 months and then at 18-24 months if no change Solitary nodule size: >8 mm * either low or high risk patients - consider follow-up CT at 3 months, and/or CT-PET, and/or biopsy Multiple nodules size: <6 mm * Low risk patients: no routine follow-up * high risk patients: optional CT at 12 months Multiple nodules size: 6-8 mm * Low risk patients: follow-up at 3-6 months, then consider further follow-up at 18-24 months * high risk patients: follow-up at 3-6 months, then at 18-24 months if no change Multiple nodules size: >8 mm * Low risk patients: follow-up at 3-6 months, then consider further follow-up at 18-24 months * high risk patients: follow-up at 3-6 months, then at 18-24 months if no change Note: newly detected indeterminate nodule in persons 35 years of age or older. * Low risk patients: minimal or absent history of smoking and/or other known risk factors * high risk patients: history of smoking or of other known risk factors (e.g. first degree relative with lung cancer, or exposure to asbestos, radon, uranium) * if a nodule up to 8 mm is partly solid or is ground glass further follow-up is required after 24 months to exclude possible slow growing adenocarcinoma (LUIS ANGEL) SUBSOLID NODULES Solitary pure ground-glass nodule * nodule size <6 mm - no CT follow-up required * nodule size >=6 mm - follow-up CT at 6-12 months, then every 2 years until 5 years Solitary part-solid nodule * nodule size <6 mm - no CT follow-up required * nodule size >=6 mm - follow-up CT at 3-6 months. If unchanged, and solid component remains <6 mm, then annual follow-up for 5 years Multiple subsolid nodules * nodule size <6 mm - follow-up CT at 3-6 months, consider further follow-up at 2 and 4 years if stable * nodule size >=6 mm - follow-up CT at 3-6 months, subsequent management based on the most suspicious nodule(s) Electronically signed by: Regis Mcneal M.D. 01/22/2017 12:25 PM Dictated Date/Time: 01/22/2017 12:17 PM
== END | disposition home or self-care (01) ==
LOC: C.CTS 12:00
PROVIDERS: ATTEND Family Medicine
DX: R91.8 Other nonspecific abnormal finding of lung field (principal)